=== PATIENT | male | born 1965 | race Caucasian/White ===

== ENCOUNTER 2019-01-07 06:53 | Day surgery (SDC) | payer OTHER, SELFPAY ==
[2019-01-07 07:17] VITALS: BP 114/71; PULSE 75; RESP 15; TEMP 36.6; O2SAT 98; BMI 26.9
--- NOTE | 2019-01-07 07:51 | PM.HP.1 ---
History of Present Illness Date Patient Seen: 01/07/19 Time Patient Seen: 07:51 Chief complaint: [id number] Narrative: Patient is a gentleman here for screening colonoscopy. This is 1st exam. No family history. Patient History Social History household members: spouse Smoking Status: Never smoker Family & Social History Social History: household members spouse Tobacco & Substance use: Smoking Status Never smoker Meds Home Medications Medication Instructions Recorded Confirmed Type aspirin 81 mg tablet,delayed 81 mg PO DAILY 09/27/18 01/07/19 History release cyclobenzaprine 5 mg tablet 5 mg PO TID 09/27/18 09/27/18 History doxycycline hyclate 50 mg capsule 50 mg PO BID 09/27/18 01/07/19 History multivitamin tablet 1 tab PO DAILY 09/27/18 09/27/18 History Allergies Allergy/AdvReac Type Severity Reaction Status Date / Time No Known Drug Allergies Allergy Unverified 09/27/18 09:47 Review of Systems Review of Systems All systems reviewed & are unremarkable except as noted in HPI and below Exam Vital Signs (past 8 hours): - 01/07/19 07:17 Temperature 97.8 F Pulse Rate 75 Respiratory Rate 15 Blood Pressure 114/71 Pulse Oximetry 98 Oxygen Delivery Method Room Air Narrative Exam Narrative: Operative no apparent distress. Lungs are clear to auscultation no rales or rhonchi heart regular rate and rhythm no murmur gallop abdomen is soft scaphoid nontender without mass. Patient is alert and oriented x3. Assessment & Plan Assessment & Plan narrative: Patient for screening colonoscopy. I have discussed the procedure and the rationale with the patient including risks of bleeding, perforation which would necessitate a major operation, failure to find remove all lesions and the potential to tattoo. They appeared to understand and wished to proceed.
[2019-01-07] MEDS: SODIUM CHLORIDE 0.9% 1,000 ML 200 ML IV (08:17)
[2019-01-07] MEDS: MIDAZOLAM 5 MG/5 ML VIAL IV (08:23)
[2019-01-07] MEDS: fentaNYL 250 MCG/5 ML INJ IV (08:24)
--- NOTE | 2019-01-07 08:27 | PM.OP.ENDO ---
Operative Date/Time/Diagnoses Date of procedure: 01/07/19 Time of procedure: 08:28 Pre-op diagnosis: Screening examination. This is his 1st colonoscopy. Post-op diagnosis: same (Normal exam except for some small internal hemorrhoids) Procedure & Clinicians Study performed: Colonoscopy Same procedure as scheduled: Yes Indications: Screening due to age Surgeon: Charles Segura Procedure Notes SCOAP/Timeout: Performed Procedure in detail: The patient was placed in the left lateral decubitus position and underwent IV sedation directed by the surgeon consisting of fentanyl and Versed. Digital exam was remarkable for a mildly be increased prostate size. There were no masses.. The scope was inserted and advanced through the rectum into the sigmoid, descending, transverse, and ascending colon. No lesions were seen.. The cecum was reached identified by the ileocecal valve and the appendiceal opening. The scope was gradually brought out. No Polyps were found. The scope ultimately was retroflexed in the rectum. The appearance was normal. The scope was removed slowly. there were some small hemorrhoids right near the anal verge. The scope was removed and the patient tolerated the procedure well. The prep was excellent. Scope withdrawal time: 6-1/2 minutes Sedation minutes: 20 Findings: internal hemorrhoids (Small) Specimen(s): none sent Complications: none Recommendations: Colonscopy in 10 years Follow up: as needed Disposition: same day surgery
[2019-01-07 08:30] VITALS: BP 117/76; PULSE 70; RESP 15; TEMP 36.8; O2SAT 98
[2019-01-07 08:36] VITALS: BP 115/77; PULSE 73; RESP 16; O2SAT 99
--- NOTE | 2019-01-07 08:39 | PM.PREOP ---
Pre-operative Note Interval Note History & Physical reviewed/Exam performed by Physician: Yes Changes to H&P: No H&P completed within 30 days and has changed as indicated here:: H&P done prior to the procedure. There were no changes. ASA Class (for procedural sedation): I
[2019-01-07 08:40] VITALS: BP 114/78; PULSE 78; RESP 18; O2SAT 98
== END 2019-01-07 08:50 | disposition home or self-care (01) ==
PROVIDERS: Visit Provider Specialist
PROC: 0DJD8ZZ Inspection of Lower Intestinal Tract, Via Natural or Artificial Opening Endoscopic (ICD-10-PCS; CPT 45378; principal; 2019-01-07 07:45)
DX: Z12.11 Encounter for screening for malignant neoplasm of colon (principal); K64.8 Other hemorrhoids
CPT/HCPCS: 45378; 99152; J2250; J3010

== ENCOUNTER → 2022-02-12 17:32 | Outpatient (CLI) | payer OTHER, SELFPAY ==
[2022-02-12 20:34] LABS: Appearance Urine UA CLEAR; Bilirubin Urine UA NEGATIVE (NEGATIVE); Color Urine UA YELLOW; Glucose Urine UA NEGATIVE (Negative); Ketones Urine UA NEGATIVE (NEGATIVE); Leukocyte Esterase Urine UA NEGATIVE (NEGATIVE); Nitrite Urine UA NEGATIVE (Negative); Occult Blood Urine UA TRACE-INTACT (Negative); Protein Urine UA NEGATIVE (Negative); Urobilinogen Urine UA 0.2 E.U./dL (0.2)
[2022-02-12 20:42] LABS: Bacteria Urine None Seen; Culture Indicated Urine Cult Not Indicated; RBC Urine None Seen (0-5/HPF); Squamous Epithelial Cell Urine 0-1 /HPF (0-5/HPF); WBC Urine None Seen (0-5/HPF)
[2022-02-12 21:13] LABS: Urine N gonorrhoeae NOT DETECTED
[2022-02-12 21:37] LABS: Urine Chlamydia NOT DETECTED
[2022-02-13 08:24] LABS: RPR Screen Non Reactive (Non Reactive)
[2022-02-13 16:27] LABS: HIV 1 & 2 Ab/Ag 4th Gen Combo NEGATIVE (NEGATIVE)
== END ==
PROVIDERS: PCP Student in an Organized Health Care Education/Training Program; Referring Provider Student in an Organized Health Care Education/Training Program; Visit Provider Student in an Organized Health Care Education/Training Program
DX: R30.0 Dysuria (principal); Z72.51 High risk heterosexual behavior; Z12.5 Encounter for screening for malignant neoplasm of prostate
CPT/HCPCS: 36415; 81001; 86592; 87389; 87491; 87522; 87591; G0103

== ENCOUNTER → 2022-03-18 14:22 | Outpatient (CLI) | payer OTHER, SELFPAY ==
--- NOTE | 2022-03-18 14:24 | DI.RAD.S_ITS ---
PROCEDURE: XR HAND RT MIN 3V INDICATIONS: fall TECHNIQUE: 3 views of the hand(s) acquired. COMPARISON: None. FINDINGS: Bones: No fractures or dislocations. Carpal bones are normally aligned. No suspicious bony lesions. Mild degenerative joint disease is present. Soft tissues: No suspicious soft tissue calcifications. IMPRESSION: No acute osseous abnormalities. If clinical symptoms persist or clinical suspicion for pathology is high, a repeat examination in 7-10 days, or advanced imaging such as CT or MRI is suggested for further evaluation. Dictated by: Zulma Solorio M.D. on 03/18/2022 at 16:23 Approved by: Zulma Solorio M.D. on 03/18/2022 at 16:26
--- NOTE | 2022-03-18 14:24 | DI.RAD.S_ITS ---
PROCEDURE: XR TOE RT MIN 2V INDICATIONS: fall TECHNIQUE: 3 views of the right great toe(s) acquired. COMPARISON: None. FINDINGS: Bones: No acute fracture or dislocation. Severe degenerative changes are present at the 1st MTP joint. A subchondral cyst is present at the base of the proximal right 1st phalanx. Soft tissues: No suspicious soft tissue densities. IMPRESSION: Degenerative change. No acute radiographic findings. If pain persists, followup imaging in 5-7 days is recommended to exclude occult fracture. Dictated by: Radha Blanco M.D. on 03/18/2022 at 15:18 Approved by: Radha Blanco M.D. on 03/18/2022 at 15:19
== END ==
PROVIDERS: PCP Student in an Organized Health Care Education/Training Program; Referring Provider Nurse Practitioner Family; Visit Provider Nurse Practitioner Family
DX: R52 Pain, unspecified (principal); W19.XXXA Unspecified fall, initial encounter
CPT/HCPCS: 73130; 73660

== ENCOUNTER → 2023-03-23 09:59 | Outpatient (CLI) | payer OTHER, SELFPAY | PROVIDERS: Family Provider Pediatrics; PCP Pediatrics; Referring Provider Pediatrics; Visit Provider Pediatrics | DX: R00.1 Bradycardia, unspecified (principal); R06.02 Shortness of breath | CPT/HCPCS: 93246 ==

== ENCOUNTER → 2023-06-26 07:49 | Outpatient (CLI) | payer OTHER, SELFPAY ==
[2023-06-26 08:23] LABS: Add Manual Diff / Slide Review NO; Basophils Absolute Auto 100 /uL (0-100); Basophils Percent Auto 0.9 % (0-2); Eosinophils Absolute Auto 200 /uL (0-450); Eosinophils Percent Auto 3.2 % (2-4); Hemoglobin 14.5 g/dL (13.5-17.5); Lymphocytes Absolute Auto 1600 /uL (1100-4500); Lymphocytes Percent Auto 27.8 % (25-40); Mean Corpuscular HGB Conc 34.6 % (30-36); Mean Corpuscular Hemoglobin 30.8 PG (26-34); Mean Corpuscular Volume 88.9 fL (80-100); Monocytes Absolute Auto 500 /uL (0-900); Monocytes Percent Auto 8.8 % (3-14); Neutrophils Absolute Auto 3400 /uL (1500-7000); Neutrophils Percent Auto 59.3 % (50-75); Platelet Count 232 X10^3/uL (150-400); Red Blood Cell Count 4.72 X10^6/uL (4.5-5.9); Red Cell Distribution Width 13.1 % (11.6-14.8); White Blood Cell Count 5.8 X10^3/uL (4.5-11.0)
[2023-06-26 08:40] LABS: HEMOLYSIS < 15 (0-50)
[2023-06-26 08:45] LABS: Alanine Aminotransferase 44 IU/L (<50); Albumin 4.5 g/dL (3.5-5.0); Albumin Globulin Ratio 1.6 (1.0-2.8); Alkaline Phosphatase 55 U/L (38-126); Aspartate Aminotransferase 40 IU/L (17-59); BUN Creatinine Ratio 19.5 (6-22); Bilirubin Total 0.3 mg/dL (0.2-1.3); Blood Urea Nitrogen 24 mg/dL (9-20); Calcium 9.7 mg/dL (8.4-10.2); Carbon Dioxide 26 mmol/L (22-32); Chloride 102 mmol/L (98-107); Cholesterol 182 mg/dL (140-199); Estimated Glomerular Filt Rate > 60 mL/min (>60); Globulin 2.9 g/dL (1.7-4.1); Glucose 82 mg/dL (70-100); HDL Cholesterol 54 mg/dL (40-60); LDL Cholesterol Calculated 112 mg/dL (<100); Potassium 4.7 mmol/L (3.4-5.1); Sodium 136 mmol/L (137-145); Total Protein 7.4 g/dL (6.3-8.2); Triglycerides 80 mg/dL (35-150)
[2023-06-26 08:49] LABS: High Sensitivity CRP - Cardiac 0.5 mg/L (1.0-3.0)
[2023-06-26 09:16] LABS: TSH w/ Reflex to FT4 1.86 uIU/mL (0.47-4.68)
[2023-06-30 16:17] LABS: Prostate Specific Antigen Scrn 3.11 ng/mL (0.1-4.0)
== END ==
PROVIDERS: Family Provider Pediatrics; PCP Pediatrics; Referring Provider Pediatrics; Visit Provider Pediatrics
DX: Z12.5 Encounter for screening for malignant neoplasm of prostate (principal); R06.02 Shortness of breath; R00.1 Bradycardia, unspecified; F90.9 Attention-deficit hyperactivity disorder, unspecified type; J30.9 Allergic rhinitis, unspecified
CPT/HCPCS: 36415; 80053; 80061; 84443; 85025; 86140; G0103

== ENCOUNTER → 2023-12-08 09:55 | Outpatient (CLI) | payer OTHER, SELFPAY ==
[2023-12-08 10:25] LABS: Appearance Urine UA CLEAR; Bilirubin Urine UA NEGATIVE (NEGATIVE); Color Urine UA YELLOW; Glucose Urine UA NEGATIVE (Negative); Ketones Urine UA NEGATIVE (NEGATIVE); Leukocyte Esterase Urine UA 1+ (NEGATIVE); Nitrite Urine UA NEGATIVE (Negative); Occult Blood Urine UA 1+ (Negative); Protein Urine UA NEGATIVE (Negative); Specific Gravity Urine UA <=1.005 (1.000-1.035); Urobilinogen Urine UA 0.2 E.U./dL (0.2); pH Urine UA 6.5 (4.5-8.0)
[2023-12-08 10:33] LABS: Hemoglobin A1C% w Est Avg Glu 5.1 % (4.0-6.0)
[2023-12-08 10:42] LABS: Bacteria Urine None Seen; Culture Indicated Urine Specimen Cultured; RBC Urine None Seen (0-5/HPF); Squamous Epithelial Cell Urine None Seen (0-5/HPF); Urine Volume 10mL (spun); WBC Urine None Seen (0-5/HPF)
[2023-12-08 10:53] LABS: Alanine Aminotransferase 34 IU/L (<50); Albumin 4.3 g/dL (3.5-5.0); Albumin Globulin Ratio 1.4 (1.0-2.8); Alkaline Phosphatase 44 U/L (38-126); Aspartate Aminotransferase 33 IU/L (17-59); Bilirubin Total 0.9 mg/dL (0.2-1.3); Blood Urea Nitrogen 22 mg/dL (9-20); Calcium 9.4 mg/dL (8.4-10.2); Carbon Dioxide 27 mmol/L (22-32); Chloride 107 mmol/L (98-107); Estimated Glomerular Filt Rate > 60 mL/min (>60); Glucose 109 mg/dL (70-100); HEMOLYSIS < 15 (0-50); Potassium 4.2 mmol/L (3.4-5.1); Sodium 138 mmol/L (137-145); Total Protein 7.3 g/dL (6.3-8.2)
== END ==
LOC: LAB 09:56
PROVIDERS: Family Provider Pediatrics; PCP Family Medicine; Referring Provider Family Medicine; Visit Provider Family Medicine
DX: R35.0 Frequency of micturition (principal); Z13.1 Encounter for screening for diabetes mellitus; Z13.9 Encounter for screening, unspecified; R07.89 Other chest pain
CPT/HCPCS: 36415; 80053; 81001; 83036; 87086

== ENCOUNTER → 2024-01-13 09:19 | Outpatient (CLI) | payer OTHER, SELFPAY ==
--- NOTE | 2024-01-13 09:21 | DI.MRI.S_ITS ---
PROCEDURE: MR LUMBAR SPINE WO CON INDICATIONS: Lower Back Pain TECHNIQUE: Noncontrast sagittal T1 spin echo and T2 fast echo, sagittal STIR, and T2 fast spin echo through the lumbar spine. In cases with scoliosis, additional coronal T2 fast spin echo may be performed. COMPARISON: None. FINDINGS: Image quality: Excellent. Alignment and Curvature: There is normal bony alignment. Bone Marrow: Marrow is of normal overall signal. No acute vertebral body compression fractures. Hemangioma in L3. Spinal Cord: Conus medullaris terminates at the L2 level. Visualized cord demonstrates normal signal and size. Paraspinous Soft Tissues: No paravertebral masses. T12-L1: Normal appearance. L1-L2: Broad-based disc bulge. L2-L3: Broad-based disc bulge. Bilateral facet effusions. L3-L4: Broad-based disc bulge, mild ligamentum flavum hypertrophy L4-L5: Broad-based disc bulge, bilateral facet hypertrophy, small right facet effusion. Mild bilateral neural foraminal narrowing. L5-S1: Broad-based disc bulge, facet hypertrophy. IMPRESSION: Mild, multilevel degenerative disc disease and facet arthrosis. Of note: No significant spinal canal narrowing. Mild bilateral neural foraminal narrowing at L4-5. Dictated by: Drew Maynard M.D. on 01/13/2024 at 10:06 Approved by: Drew Maynard M.D. on 01/13/2024 at 10:19
== END ==
PROVIDERS: Family Provider Pediatrics; PCP Family Medicine; Referring Provider Family Medicine; Visit Provider Family Medicine
DX: M51.36 Other intervertebral disc degeneration, lumbar region (principal); M51.37 Other intervertebral disc degeneration, lumbosacral region; M47.816 Spondylosis without myelopathy or radiculopathy, lumbar region; M47.817 Spondylosis without myelopathy or radiculopathy, lumbosacral region; M48.061 Spinal stenosis, lumbar region without neurogenic claudication; M54.50 Low back pain, unspecified; G89.29 Other chronic pain
CPT/HCPCS: 72148

== ENCOUNTER → 2024-01-14 12:16 | Outpatient (CLI) | payer OTHER, SELFPAY | PROVIDERS: Family Provider Pediatrics; PCP Family Medicine; Visit Provider Nurse Practitioner Family | DX: L72.3 Sebaceous cyst (principal) | CPT/HCPCS: 87070; 87075; 87205 ==

== ENCOUNTER → 2024-11-28 09:16 | Outpatient (CLI) | payer OTHER, SELFPAY ==
[2024-11-28 09:53] LABS: Hematocrit 40.8 % (41-53); Mean Corpuscular HGB Conc 34.2 % (30-36); Mean Corpuscular Hemoglobin 30.5 PG (26-34); Mean Corpuscular Volume 89.2 fL (80-100); Platelet Count 181 X10^3/uL (150-400); Red Blood Cell Count 4.58 X10^6/uL (4.5-5.9); Red Cell Distribution Width 13.3 % (11.6-14.8); White Blood Cell Count 4.3 X10^3/uL (4.5-11.0)
[2024-11-28 10:01] LABS: Hemoglobin A1C% w Est Avg Glu 4.9 % (4.0-6.0)
[2024-11-28 10:17] LABS: Rheumatoid Factor 10.2 IU/mL (<12.0)
[2024-11-28 10:18] LABS: Alanine Aminotransferase 36 IU/L (<50); Albumin 4.5 g/dL (3.5-5.0); Albumin Globulin Ratio 1.8 (1.0-2.8); Alkaline Phosphatase 46 U/L (38-126); Aspartate Aminotransferase 32 IU/L (17-59); BUN Creatinine Ratio 18.7 (6-22); Bilirubin Total 0.7 mg/dL (0.2-1.3); Blood Urea Nitrogen 23 mg/dL (9-20); Calcium 9.2 mg/dL (8.4-10.2); Carbon Dioxide 25 mmol/L (22-32); Chloride 105 mmol/L (98-107); Cholesterol 174 mg/dL (140-199); Estimated Glomerular Filt Rate > 60 mL/min (>60); Globulin 2.5 g/dL (1.7-4.1); Glucose 105 mg/dL (70-100); HDL Cholesterol 56 mg/dL (40-60); HEMOLYSIS < 15 (0-50); LDL Cholesterol Calculated 107 mg/dL (<100); Potassium 4.2 mmol/L (3.4-5.1); Sodium 138 mmol/L (137-145); Triglycerides 53 mg/dL (35-150)
[2024-11-28 10:48] LABS: TSH w/ Reflex to FT4 1.44 uIU/mL (0.47-4.68)
[2024-11-29 04:41] LABS: RPR Screen Non Reactive (Non Reactive)
[2024-11-30 09:09] LABS: Angiotensin Converting Enzyme 67 U/L (14-82)
== END ==
PROVIDERS: Family Provider Pediatrics; PCP Family Medicine; Referring Provider Ophthalmology; Visit Provider Ophthalmology
DX: H21.541 Posterior synechiae (iris), right eye (principal); H20.011 Primary iridocyclitis, right eye; Z13.1 Encounter for screening for diabetes mellitus; E78.00 Pure hypercholesterolemia, unspecified; Z13.9 Encounter for screening, unspecified; R55 Syncope and collapse
CPT/HCPCS: 36415; 80053; 80061; 81374; 82164; 83036; 84443; 85027; 86430; 86592